=== PATIENT | male | born 1960 | race Caucasian/White ===

== ENCOUNTER 2022-02-15 20:52 | Emergency (ER) | payer BC, SELFPAY ==
--- NOTE | ~2022-02-15 | XR_ITS ---
EXAMINATION: XR WRIST, LEFT CLINICAL INFORMATION: Fall. Rule out fracture. COMPARISON: None TECHNIQUE: Four views of the left wrist. FINDINGS: Nondisplaced fracture of the radial styloid. No additional fractures are seen. The carpal rows are well aligned. Joint spaces are maintained. Prominent soft tissue swelling at the wrist. XR/XR wrist LT 2V IMPRESSION: Nondisplaced radial styloid fracture.
--- NOTE | ~2022-02-15 | CT_ITS ---
EXAMINATION: CT HEAD WITHOUT CONTRAST CT CERVICAL SPINE WITHOUT CONTRAST CLINICAL INFORMATION: EtOH. Fall. COMPARISON: None. TECHNIQUE: Imaging was performed from the skull base to vertex without intravenous administration of contrast. In addition, helical noncontrast CT imaging was acquired through the cervical spine and source images were reviewed along with axial reconstructions and sagittal and coronal MPRs. [This CT examination was performed using dose optimization techniques as appropriate, variously including the following: *Automated exposure control *Adjustment of mA and/or kV according to patient size (this includes techniques or standardized protocols for targeted exams where dose is matched to indication/reason for exam; i.e. extremities or head) *Use of iterative reconstruction technique] DLP: 1427 mGy-cm FINDINGS: HEAD: No intracranial mass, hemorrhage, or midline shift is visualized. The ventricles and sulci are proportional. No extra-axial collections are identified. There is a fracture through the roof of the left orbit. There is herniation of orbital fat through the defect. Defect measures about 1.5 cm transverse coronal image 24/193 series 14. There is no entrapment of the extraocular muscles. There is hemorrhagic fluid in the left frontal sinus. There is air in the left orbital content. There is considerable emphysematous change of the superior left eyelid. CERVICAL SPINE: There is no evidence of acute cervical spine fracture. Vertebral bodies remain normal in height. Cervical vertebrae have normal alignment. Small vertebral endplate spurs C3-C4 through C6-C7. Degenerative spondylosis of the facet joints most pronounced at the left C3-C4 level. No pre- or paravertebral soft tissue abnormality is identified. Limited assessment of the lung apices is unremarkable. CT/CT cervical spine wo con IMPRESSION: 1. No acute intracranial pathology. 2. No CT evidence of acute cervical spine fracture or traumatic subluxation
--- NOTE | ~2022-02-15 | CT_ITS ---
EXAMINATION: CT FACIAL BONES WITHOUT CONTRAST CLINICAL INFORMATION: Fall. Rule out fracture. COMPARISON: CT head cervical spine 02/15/2022. TECHNIQUE: Unenhanced axial facial CT with multiple coronal and sagittal reformatted images. This CT examination was performed using dose optimization techniques as appropriate, variously including the following: *Automated exposure control *Adjustment of mA and/or kV according to patient size (this includes techniques or standardized protocols for targeted exams where dose is matched to indication/reason for exam; i.e. extremities or head) *Use of iterative reconstruction technique DLP: 504 mGy-cm FINDINGS: Left periorbital soft tissue inflammatory changes are present. A comminuted fracture of the superior left orbital wall is present with fracture fragments displaced into the left frontal sinus. Orbital emphysema is present along with left frontal hemosinus. Major fracture fragments are displaced 6 mm superiorly into the left frontal sinus. The posterior wall the left frontal sinus is noted. No pneumocephalus identified. Within the incidentally visualized intracranial structures, no acute appearing abnormalities are identified. The left globe is intact. The medial wall the left orbit is intact. The superior ophthalmic vein is included with orbital herniation into the left frontal sinus. Fluid extends into the anterior left ethmoid air cells. The visualized mastoid air cells and middle ear cavities are clear. The mandible appears intact. No nasal bone fractures identified. Mild lobulated mucosal thickening within the maxillary sinuses. CT/CT facial bones wo con IMPRESSION: Left orbital blowout fracture involving the superior wall of the left orbit with comminuted fracture fragments displaced into the left frontal sinus as detailed above. Mild herniation of the orbital contents is noted and includes the left superior ophthalmic vein. No gross herniation of the extraocular muscles. Extensive left periorbital soft tissue inflammatory changes. No associated intracranial abnormalities identified.
[2022-02-15 21:01] VITALS: BP 152/66; PULSE 88; O2SAT 98; BMI 30.1
--- NOTE | 2022-02-15 21:02 | ECG_ITS ---
Test Reason : FALL Blood Pressure : / mmHG Vent. Rate : 094 BPM Atrial Rate : 094 BPM P-R Int : 166 ms QRS Dur : 094 ms QT Int : 368 ms P-R-T Axes : 060 066 049 degrees QTc Int : 460 ms Normal sinus rhythm Nonspecific T wave abnormality Prolonged QT Abnormal ECG When compared with ECG of 25-DEC-2016 00:24, ST no longer elevated in Lateral leads Nonspecific T wave abnormality, worse in Inferior leads Nonspecific T wave abnormality now evident in Lateral leads Referred By: Alma Jolly Electronically Signed By:CHASE BRYAN MD
--- NOTE | 2022-02-15 21:04 | ED.ALCOHOL ---
HPI - Alcohol General Chief Complaint: Fall Stated Complaint: ETOH/ fall Time Seen by Provider: 02/15/22 20:57 Source: patient and EMS Mode of arrival: EMS Limitations: no limitations History of Present Illness HPI narrative: Patient comes to the emergency room via EMS. Patient has been drinking today, patient fell down the stairs. Family called. Patient reports pain in his wrist on the left side. Patient has an extensive laceration above the left eyebrow, complaining of toe pain on the left foot. Patient denies being on blood thinners. Patient denies chest pain or shortness of breath, no abdominal pain Related Data Allergies Allergy/AdvReac Type Severity Reaction Status Date / Time No Known Allergies Allergy Unverified 05/11/20 16:44 Review of Systems Review of Systems: Constitutional : No Weight loss, No Fever, No Chills, No Night Sweats, No Fatigue, No Malaise ENT/Mouth : No Hearing loss, No Ear Pain, No Nasal Congestion, No Sinus Pain, No Hoarseness, No sore throat, No Rhinorrhea, No Swallowing Difficulty Eyes: No Eye Pain, No Swelling, No Redness, No Foreign Body, No Discharge, No Vision Changes Cardiovascular : No Chest Pain, No SOB, No Dyspnea on Exertion, No Orthopnea, No Edema, No Palpitations Respiratory : No Cough, No Sputum, No Wheezing, No Smoke Exposure, No Dyspnea Gastrointestinal : No Nausea, No Vomiting, No Diarrhea, No Constipation, No abdominal Pain, No Hematochezia, No Melena Genitourinary : no irregular bleeding, No Dysuria, No Urinary Frequency, No Hematuria, No Urinary Incontinence, No Urgency, No Flank Pain, No Urinary Flow Changes, No Hesitancy Musculoskeletal : Complaining of left wrist pain, No Myalgias, No Joint Swelling Skin : Complaining of a large laceration above the left eyebrow, pain in the toenail on the left foot Neuro : No Weakness, No Numbness, No Paresthesias, No Loss of Consciousness, No Dizziness, No Headache Psych : No Anxiety/Panic, No Depression, No SI/HI/AH/VH, No Social Issues, Heme/Lymph: No Bruising, No Bleeding,No Lymphadenopathy Endocrine : No Polyuria, No Polydipsia, No Temperature Intolerance PMFSH Past Medical History Medical History (Updated 02/16/22 @ 01:29 by Alma Jolly MD) Alcohol abuse Diabetes Hypertension Social History Social History Alcohol intake: current Alcohol type: beer Patient Tobacco Use Status: Never used Tobacco Use of substances other than those prescribed or required for medical reasons: No Advance Directives: No Advance Directives Information Provided: No Physical Exam ED Vital Signs: Vital Signs - 24 hr 02/15/22 21:06 02/15/22 23:40 02/16/22 00:48 Temperature 97.8 F 98.2 F Pulse Rate 86 98 Respiratory Rate 16 18 14 Blood Pressure 155/88 H 149/81 H Pulse Oximetry 97 97 Oxygen Delivery Method Room Air Room Air BMI result Body Mass Index 30.1 Const Other: Appearance: Alert. Oriented X3. No acute distress. Eyes: Pupils equal, round and reactive to light. Patient is able to move both eyes in all directions with no pain, extraocular muscle entrapment not suspected. However, patient has extensive left periorbital tissue inflammation ENT: Pharynx normal. Neck: Normal inspection. Neck supple. No lymph nodes noted. No crepitus CVS: Normal heart rate and rhythm. Pulses normal. Normal S1 and S2 Respiratory: No respiratory distress. Breath sounds normal. No Wheezing. No rales Abdomen: Soft and nontender. No rigidity. No distention. Skin: Skin warm and dry. Patient has a 10 cm laceration above the left eyebrow, deep, bleeding controlled, small laceration above the left eyelid and above the nasal bridge. Extremities: No lower extremity edema. No Lacerations. No Rash Neuro: Oriented X 3. No motor deficit. No sensory deficit. Moving all extremities. No slurred speech. CN 2 through 12 grossly intact Psych: calm, cooperative, normal affect Course Course Course Narrative: CT scan of head and neck pending, x-rays pending, although labs pending. Patient will need extensive repair for the laceration above his left eyebrow. 10cc of 2% lido with epinephrine were injected 15 internal disolbable sutures were applied 15 external to eye brow 2 to the left eye lid [address] scan of head and neck shows no acute pathology, but CT of facial bones shows a Left orbital blowout fx, mild herniation of the left superior ophthalmic vein. No gross herniation of the extraocular muscles I discussed the patient with [facility] attending Dr. Alvarez, pt will be transferred ED to ED [facility] - Alcohol Lab Data Result diagrams: 02/15/22 21:43 02/15/22 21:43 Labs: Lab Results 02/15/22 02/15/22 02/15/22 Range/Units 21:43 21:43 21:43 WBC 5.8 (4.8-10.8) X10*3/uL RBC 5.44 (4.60-5.80) X10*6/uL Hgb 15.8 (14.0-18.0) g/dl Hct 47.5 (42.0-52.0) % MCV 87.3 (80.0-98.0) fL MCH 29.0 (27.0-33.0) pg MCHC 33.3 (31.0-36.0) g/dl RDW 13.1 (11.0-16.0) % Plt Count 250 (160-400) X10*3/uL MPV 9.5 (9.4-12.4) fL Immature Gran % (Auto) 0.2 (0.0-0.4) % Neut % (Auto) 54.1 (45-73) % Lymph % (Auto) 35.5 (20-40) % [place] % (Auto) 7.1 (2-11) % Eos % (Auto) 2.6 (0-4) % Baso % (Auto) 0.5 (0-2) % Lymph # (Auto) 2.1 (1.2-4.9) X10*3/uL [place] # (Auto) 0.4 (0.1-1.2) X10*3/uL Eos # (Auto) 0.2 (0.0-0.4) X10*3/uL Baso # (Auto) 0.0 (0.0-0.2) X10*3/uL Abs Immat Gran (auto) 0.01 (0.00-0.03) X10*3/uL Absolute Neuts (auto) 3.1 (2.0-8.3) x10*3/uL Absolute Nucleated RBC 0.000 (0.0-0.012) X10*3/uL Nucleated RBC % (auto) 0.0 (0.0-0.2) /100WBC PT 11.7 (9.9-13.0) SEC INR 1.0 (0.9-1.1) Sodium 136 (135-145) mmol/L Potassium 4.1 (3.3-5.1) mmol/L Chloride 100 (96-108) mmol/L Carbon Dioxide 26 (22-29) mmol/L Anion Gap 14 (12-20) BUN 12 (9-16) mg/dL Creatinine 1.08 (0.5-1.4) mg/dL Estim Creat Clear Calc 84.2 Estimated GFR > 60 POC Glucose (60-115) mg/dL Random Glucose 102 (60-115) mg/dL Calcium 9.7 (8.4-10.2) mg/dL Magnesium 2.1 (1.6-2.6) mg/dL Total Bilirubin 0.9 (0.0-1.0) mg/dL Direct Bilirubin 0.4 (0.0-0.5) mg/dL AST 25 (5-37) U/L ALT 30 (0-40) U/L Alkaline Phosphatase 99 (39-117) U/L Troponin I High Sens (<3.5-35.0) ng/L Total Protein 7.6 (6.5-8.0) g/dL Albumin 4.7 (3.5-5.0) g/dL Ethyl Alcohol mg/dL 02/15/22 02/15/22 02/15/22 Range/Units 21:43 21:43 23:36 WBC (4.8-10.8) X10*3/uL RBC (4.60-5.80) X10*6/uL Hgb (14.0-18.0) g/dl Hct (42.0-52.0) % MCV (80.0-98.0) fL MCH (27.0-33.0) pg MCHC (31.0-36.0) g/dl RDW (11.0-16.0) % Plt Count (160-400) X10*3/uL MPV (9.4-12.4) fL Immature Gran % (Auto) (0.0-0.4) % Neut % (Auto) (45-73) % Lymph % (Auto) (20-40) % [place] % (Auto) (2-11) % Eos % (Auto) (0-4) % Baso % (Auto) (0-2) % Lymph # (Auto) (1.2-4.9) X10*3/uL [place] # (Auto) (0.1-1.2) X10*3/uL Eos # (Auto) (0.0-0.4) X10*3/uL Baso # (Auto) (0.0-0.2) X10*3/uL Abs Immat Gran (auto) (0.00-0.03) X10*3/uL Absolute Neuts (auto) (2.0-8.3) x10*3/uL Absolute Nucleated RBC (0.0-0.012) X10*3/uL Nucleated RBC % (auto) (0.0-0.2) /100WBC PT (9.9-13.0) SEC INR (0.9-1.1) Sodium (135-145) mmol/L Potassium (3.3-5.1) mmol/L Chloride (96-108) mmol/L Carbon Dioxide (22-29) mmol/L Anion Gap (12-20) BUN (9-16) mg/dL Creatinine (0.5-1.4) mg/dL Estim Creat Clear Calc Estimated GFR POC Glucose 121 H (60-115) mg/dL Random Glucose (60-115) mg/dL Calcium (8.4-10.2) mg/dL Magnesium (1.6-2.6) mg/dL Total Bilirubin (0.0-1.0) mg/dL Direct Bilirubin (0.0-0.5) mg/dL AST (5-37) U/L ALT (0-40) U/L Alkaline Phosphatase (39-117) U/L Troponin I High Sens < 3.5 (<3.5-35.0) ng/L Total Protein (6.5-8.0) g/dL Albumin (3.5-5.0) g/dL Ethyl Alcohol 209 mg/dL Imaging Data Left wrist x-ray: Radiologist's impression: Nondisplaced fracture of the radial styloid. No additional fractures are seen. The carpal rows are well aligned. Joint spaces are maintained. Prominent soft tissue swelling at the wrist.? XR/XR wrist LT 2V IMPRESSION: Nondisplaced radial styloid fracture. Head and cervical spine CT: Radiologist's impression: FINDINGS: HEAD: No intracranial mass, hemorrhage, or midline shift is visualized. The ventricles and sulci are proportional. No extra-axial collections are identified. ?There is a fracture through the roof of the left orbit. There is herniation of orbital fat through the defect. Defect measures about 1.5 cm transverse coronal image 24/193 series 14. There is no entrapment of the extraocular muscles. There is hemorrhagic fluid in the left frontal sinus. There is air in the left orbital content. There is considerable emphysematous change of the superior left eyelid. CERVICAL SPINE: There is no evidence of acute cervical spine fracture. Vertebral bodies remain normal in height. Cervical vertebrae have normal alignment. Small vertebral endplate spurs C3-C4 through C6-C7. Degenerative spondylosis of the facet joints most pronounced at the left C3-C4 level. No pre- or paravertebral soft tissue abnormality is identified. Limited assessment of the lung apices is unremarkable. CT/CT head/brain wo con IMPRESSION: 1. No acute intracranial pathology. 2. No CT evidence of acute cervical spine fracture or traumatic subluxation ? Discharge Plan Discharge Clinical Impression: Alcohol intoxication, Fracture of wrist, Laceration of eyebrow, Blow-out fracture of orbital floor Patient Disposition: [facility] Transfer Details: [facility] Emergency Room Instructions: Laceration (ED), Wrist Fracture in Adults (ED) Additional Instructions: Your sutures need to be removed in 7-10 days. If you see any signs of infection such as redness, pus drainage, fever chills, you need to return to the emergency room immediately. Please follow-up with orthopedics for your wrist fracture. Please follow-up with your primary care physician tomorrow. If you have any worsening or new symptoms, please return to the emergency room or call 911 Referrals: Vinny Kumar PA-C [[employer]] - 3 days
[2022-02-15 21:06] VITALS: BP 155/88; PULSE 86; RESP 16; TEMP 36.6; O2SAT 97
--- NOTE | 2022-02-15 21:11 | PC.NURSE ---
Pt brought in by EMS. Pt reports having 4-5 beers at home. Pt had fallen down 4 stairs. Pt has a laceration above the left eye as well as a cut on the left big toe. Pt is A&O, complaining of 7/10 pain in the left wrist, where some swelling is noted, CSM in tact in extremity.
[2022-02-15 21:48] LABS: MANUAL DIFF FLAG NO
[2022-02-15 21:49] LABS: Basophils Percent Auto 0.5 % (0-2); Eosinophils Absolute Auto 0.2 X10*3/uL (0.0-0.4); Eosinophils Percent Auto 2.6 % (0-4); Hematocrit 47.5 % (42.0-52.0); Hemoglobin 15.8 g/dl (14.0-18.0); Imm Gran Abs Auto 0.01 X10*3/uL (0.00-0.03); Imm Gran Pct Auto 0.2 % (0.0-0.4); Lymphocytes Absolute Auto 2.1 X10*3/uL (1.2-4.9); Lymphocytes Percent Auto 35.5 % (20-40); Mean Corpuscular HGB Conc 33.3 g/dl (31.0-36.0); Mean Corpuscular Volume 87.3 fL (80.0-98.0); Mean Platelet Volume 9.5 fL (9.4-12.4); Monocytes Absolute Auto 0.4 X10*3/uL (0.1-1.2); Monocytes Percent Auto 7.1 % (2-11); Neutrophils Absolute Auto 3.1 x10*3/uL (2.0-8.3); Neutrophils Percent Auto 54.1 % (45-73); Platelet Count 250 X10*3/uL (160-400); Red Blood Count 5.44 X10*6/uL (4.60-5.80); Red Cell Distribution Width 13.1 % (11.0-16.0); White Blood Count 5.8 X10*3/uL (4.8-10.8)
[2022-02-15 21:54] LABS: Prothrombin Time 11.7 SEC (9.9-13.0)
[2022-02-15 22:03] LABS: Ethanol 209 mg/dL
[2022-02-15 22:05] LABS: Alanine Aminotransferase 30 U/L (0-40); Albumin Level 4.7 g/dL (3.5-5.0); Alkaline Phosphatase 99 U/L (39-117); Anion Gap 14 (12-20); Aspartate Amino Transferase 25 U/L (5-37); Bilirubin Direct 0.4 mg/dL (0.0-0.5); Bilirubin Total 0.9 mg/dL (0.0-1.0); Blood Urea Nitrogen 12 mg/dL (9-16); Calcium 9.7 mg/dL (8.4-10.2); Carbon Dioxide 26 mmol/L (22-29); Chloride 100 mmol/L (96-108); Creatinine Clr Calc Pharmacy 84.2; Estimated Glomerular Filt Rate > 60; Glucose Random 102 mg/dL (60-115); Magnesium 2.1 mg/dL (1.6-2.6); Potassium 4.1 mmol/L (3.3-5.1); Sodium 136 mmol/L (135-145); Total Protein 7.6 g/dL (6.5-8.0)
[2022-02-15 22:08] LABS: Troponin-I High Sensitivity < 3.5 ng/L (<3.5-35.0)
[2022-02-15] MEDS: Lidocaine HCl 2% PF/Epi 1:200 20 ML VIAL INFILTRATI (22:22)
[2022-02-15 23:40] VITALS: BP 149/81; PULSE 98; RESP 18; TEMP 36.8; O2SAT 97
[2022-02-15 23:40] LABS: Glucose, Whole Blood 121 mg/dL (60-115)
[2022-02-16 00:48] VITALS: RESP 14
[2022-02-16 01:31] LABS: COVID-19 Test Negative (Negative)
--- NOTE | 2022-02-16 01:53 | PC.NURSE ---
This US/Pct called [facility] transfer line @0106 per .At 0120 accepted pt to the trauma er. [facility] called at 0131 for a BLS transfer per . Ems arrived at 0212. Rn aware
--- NOTE | 2022-02-16 02:27 | PC.NURSE ---
Called [facility] ER to give report, pt picked up by [facility] to be transported.
== END 2022-02-16 02:20 | disposition short-term general hospital (02) ==
PROVIDERS: Emergency Provider Emergency Medicine; PCP Internal Medicine
DX: S52.512A Displaced fracture of left radial styloid process, initial encounter for closed fracture (principal); S01.112A Laceration without foreign body of left eyelid and periocular area, initial encounter; S02.32XA Fracture of orbital floor, left side, initial encounter for closed fracture; G44.309 Post-traumatic headache, unspecified, not intractable; M25.532 Pain in left wrist; M54.2 Cervicalgia; W10.9XXA Fall (on) (from) unspecified stairs and steps, initial encounter; Y93.9 Activity, unspecified; Y92.9 Unspecified place or not applicable; Y99.9 Unspecified external cause status; Z20.822 Contact with and (suspected) exposure to COVID-19; Z79.899 Other long term (current) drug therapy
CPT/HCPCS: 12011; 29125; 36415; 70450; 70486; 72125; 73100; 80048; 80076; 82077; 82947; 83735; 84484; 85025; 85610; 87635; 93005; 99285